=== PATIENT | male | born 1945 | race Caucasian/White ===

== ENCOUNTER → 2018-09-16 | Outpatient (CLI) | payer MEDICARE, OTHER ==
[2018-09-16 14:29] LABS: CREATININE 0.8 mg/dL (0.6-1.3)
== END ==
LOC: M.LAB 10:00 → M.CT 11:30 → M.LAB 13:55
PROVIDERS: Nurse Practitioner Adult Health
DX: K45.8 Other specified abdominal hernia without obstruction or gangrene (principal); J98.11 Atelectasis; Z87.19 Personal history of other diseases of the digestive system